=== PATIENT | female | born 2000 | race African-American/Black ===

== ENCOUNTER 2021-02-01 11:29 | Inpatient (IN) ==
[2021-02-01] MEDS ORDERED: SODIUM CHLORIDE 0.9% 1,000 ML IV SCH (12:30)
[2021-02-01] MEDS ORDERED: NIFEdipine 10 MG CAPSULE PO ONE ×5 (12:35→16:43)
[2021-02-01] MEDS ORDERED: MAGNESIUM SULF RIDER 4 GM/100 ML PREMIX IV ONE ×2 (12:36→12:38)
[2021-02-01] MEDS ORDERED: FAMOTIDINE 20 MG/2 ML VIAL IV ONE (12:38)
[2021-02-01] MEDS ORDERED: CITRIC ACID/SODIUM CITRATE 30 ML UDCUP PO ONE (12:38)
[2021-02-01 12:45] LABS: Basophils % 0.1 % (0.0-0.8); Eosinophils % 0.1 % (0.00-10.9); Hematocrit 25.9 VOL% (35.7-47.0); Hemoglobin 8.6 GM/DL (12.0-16.0); Immature Granulocytes % 0.7 %; Immature Granulocytes Absolute 0.11 #; Lymphocytes # 0.8 10*3/uL (1.4-4.0); Lymphocytes % 5.2 % (21.3-54.2); Mean Corpuscular HGB Conc 33.2 GM/DL (32-36); Mean Corpuscular Volume 80.4 FL (87-102); Mean Platelet Volume 9.7 FL (9.6-12.0); Monocytes % 4.4 % (1.7-12.7); Neutrophils % 89.5 % (38.7-73.9); Platelet Count 249 T/CUMM (130-400); Red Blood Count 3.22 MC/CUMM (3.8-5.5); Red Cell Distribution Width 13.2 % (9.3-17.3); White Blood Count 14.8 T/CUMM (4-12)
[2021-02-01 12:58] LABS: Bilirubin,Urine Negative (Negative); Blood, Urine Negative (Negative); Glucose,Urine (UA) Negative (Negative); Ketones,Urine Negative (Negative); Mucus,Urine Occasional /LPF (Occasional); Nitrite,Urine Negative (Negative); Protein,Urine 30 MG/DL; RBC,Urine 6 /HPF (0-4); Squamous Epithelial Cell,Urine Few /HPF (0-10); Urine Appearance CLOUDY (Clear); Urine Color Red (Yellow); Urine Specific Gravity 1.016 (1.001-1.035); Urine Urobilinogen < 2.0 EU/DL (0.2-1.0)
[2021-02-01 12:59] LABS: INR 0.9; PT Patient Result 10.4 SECS (10.5-12.0); Partial Thromboplastin Time 27.4 SECS (23.9-33.8)
[2021-02-01] MEDS ORDERED: MAGNESIUM SULF DRIP 40 GM/1,000 ML ML IV SCH (13:00)
[2021-02-01] MEDS ORDERED: LACTATED RINGERS 1,000 ML IV SCH ×3 (13:00→15:30)
[2021-02-01] MEDS ORDERED: OXYTOCIN/LR 30 UNIT/1,000 ML BAG IV ONE (13:09)
[2021-02-01] MEDS ORDERED: OXYTOCIN 10 UNIT/ML VIAL IM ONE (13:09)
[2021-02-01] MEDS ORDERED: miSOPROStoL 200 MCG TABLET ONE (13:14)
[2021-02-01] MEDS ORDERED: TRANEXAMIC ACID 1,000 MG/10 ML VIAL ONE (13:14)
[2021-02-01] MEDS ORDERED: OXYTOCIN/LR 20 UNIT/1,000 ML BAG IV ONE ×2 (13:14→15:20)
[2021-02-01] MEDS ORDERED: CARBOPROST TROMETHAMINE 250 MCG/ML AMP IM ONE (13:15)
[2021-02-01] MEDS ORDERED: METHYLERGONOVINE 0.2 MG/1 ML AMP ONE (13:15)
[2021-02-01] MEDS ORDERED: BUPIVACAINE SPINAL 0.75% 2 ML AMP SPINAL ONE (13:16)
[2021-02-01] MEDS ORDERED: MIDAZOLAM 2 MG/2 ML VIAL ONE (13:16)
[2021-02-01 13:19] LABS: Albumin 2.5 G/DL (3.4-5.0); Bilirubin,Direct 0.11 MG/DL (0.0-0.20); Bilirubin,Total 0.8 MG/DL (0.20-1.00); Calcium 8.6 MG/DL (8.5-10.1); Osmolality,Calculated 275.5 MOS/KG (273-304); Potassium 3.8 MMOL/L (3.5-5.1); Total Protein 7.1 G/DL (6.4-8.2); Uric Acid 3.2 MG/DL (2.6-6.0)
[2021-02-01] MEDS ORDERED: SODIUM CHLORIDE 0.9% 1,000 ML IV PRN (13:39)
[2021-02-01 14:01] LABS: Protein/Creatinine Ratio,Urine 0.3 RATIO
[2021-02-01] MEDS ORDERED: KETOROLAC 30 MG/1 ML VIAL ONE (14:24)
[2021-02-01] MEDS ORDERED: LACTATED RINGERS 1,000 ML IV ONE (14:24)
[2021-02-01] MEDS ORDERED: METOCLOPRAMIDE 10 MG/2 ML VIAL ONE (14:24)
[2021-02-01] MEDS ORDERED: MAGNESIUM HYDROXIDE SUSP 30 ML UDCUP PO PRN (15:20)
[2021-02-01] MEDS ORDERED: IBUPROFEN 800 MG TABLET PO PRN (15:20)
[2021-02-01] MEDS ORDERED: ACETAMINOPHEN 325 MG TABLET PO PRN (15:20)
[2021-02-01] MEDS ORDERED: RHO(D) IMMUNE GLOBULIN 300 MCG SYRINGE IM ONE (15:20)
[2021-02-01] MEDS ORDERED: SIMETHICONE CHEW 80 MG TABLET PO PRN (15:20)
[2021-02-01] MEDS ORDERED: ONDANSETRON 4 MG/2 ML VIAL IV PRN (15:20)
[2021-02-01] MEDS ORDERED: MEPERIDINE 50 MG/1 ML VIAL IV PRN (15:22)
[2021-02-01] MEDS: ACETAMINOPHEN 500 MG TABLET PO SCH (18:07)
[2021-02-01] MEDS: FUROSEMIDE 40 MG/4 ML VIAL IV SCH (18:32)
[2021-02-01] MEDS: KETOROLAC 30 MG/1 ML VIAL IV SCH (20:29)
[2021-02-01] MEDS: DOCUSATE SODIUM 100 MG CAPSULE PO SCH (20:29)
[2021-02-02] LABS: Basophils % 0.2 % (0.0-0.8); Eosinophils # 0.1 10*3/uL (0.0-0.87); Eosinophils % 0.5 % (0.00-10.9); Hematocrit 29.1 VOL% (35.7-47.0); Hemoglobin 9.6 GM/DL (12.0-16.0); Immature Granulocytes % 0.4 %; Immature Granulocytes Absolute 0.05 #; Lymphocytes # 1.7 10*3/uL (1.4-4.0); Lymphocytes % 12.7 % (21.3-54.2); Mean Corpuscular Volume 79.9 FL (87-102); Mean Platelet Volume 10.2 FL (9.6-12.0); Monocytes % 8.7 % (1.7-12.7); Neutrophils % 77.5 % (38.7-73.9); Platelet Count 229 T/CUMM (130-400); Red Blood Count 3.64 MC/CUMM (3.8-5.5); Red Cell Distribution Width 13.2 % (9.3-17.3)
[2021-02-02] MEDS: ACETAMINOPHEN 500 MG TABLET PO SCH ×2 (00:01→05:21)
[2021-02-02] MEDS: FUROSEMIDE 40 MG/4 ML VIAL IV SCH ×2 (00:04→05:30)
[2021-02-02] MEDS: KETOROLAC 30 MG/1 ML VIAL IV SCH ×2 (02:22→08:39)
[2021-02-02] MEDS ORDERED: SODIUM CHLORIDE 0.9% 100 ML IV ONE (05:17)
[2021-02-02] MEDS: MULTIVITAMIN (PRENATAL) TABLET PO SCH (08:37)
[2021-02-02] MEDS: DOCUSATE SODIUM 100 MG CAPSULE PO SCH ×2 (08:37→21:44)
[2021-02-02] MEDS: METOCLOPRAMIDE 10 MG TABLET PO SCH ×2 (10:38→17:25)
[2021-02-02] MEDS ORDERED: diphenhydrAMINE CAP 25 MG CAPSULE PO PRN (15:22)
[2021-02-02] MEDS ORDERED: ACETAMINOPHEN 325 MG TABLET PO PRN (17:49)
[2021-02-02] MEDS: FERROUS SULFATE 325 MG TABLET PO SCH (21:44)
[2021-02-03] MEDS: METOCLOPRAMIDE 10 MG TABLET PO SCH ×2 (02:55→09:39)
[2021-02-03 08:19] VITALS: BP 137/69
[2021-02-03] MEDS: FERROUS SULFATE 325 MG TABLET PO SCH (09:39)
[2021-02-03] MEDS: DOCUSATE SODIUM 100 MG CAPSULE PO SCH (09:39)
[2021-02-03] MEDS: MULTIVITAMIN (PRENATAL) TABLET PO SCH (09:39)
[2021-02-03 12:46] LABS: Bilirubin,Urine Negative (Negative); Blood, Urine Large mg/dL (Negative); Glucose,Urine (UA) Negative (Negative); Ketones,Urine Negative (Negative); Mucus,Urine Occasional /LPF (Occasional); Nitrite,Urine Negative (Negative); Protein,Urine 100 MG/DL; RBC,Urine 2631 /HPF (0-4); Squamous Epithelial Cell,Urine Occasional /HPF (0-10); Urine Appearance Slightly Hazy (Clear); Urine Color Red (Yellow); Urine Specific Gravity 1.013 (1.001-1.035); Urine Urobilinogen < 2.0 EU/DL (0.2-1.0)
[2021-02-03 15:08] LABS: Barbiturates Screen,Urine Negative (Negative); Benzodiazepines Screen,Urine Negative (Negative); Cannabinoid Screen,Urine Negative (Negative); Opiate Screen,Urine Positive (Negative); Phencyclidine Screen,Urine Negative (Negative)
== END 2021-02-03 13:31 | disposition home or self-care (01) | DRG 540 ==
LOC: N.LDOUT 11:29 → N.LD 11:34 → N.SDSINP 11:34 → N.LD 12:38 → N.OB 02-02 10:29
PROVIDERS: ADMIT Obstetrics & Gynecology; ATTEND Obstetrics & Gynecology
PROC: LDCSECT (ICD-10-PCS; 2021-02-01 13:00)